=== PATIENT | male | born 1980 | race American Indian/Alaskan Native ===

== ENCOUNTER 2018-07-25 20:24 | Emergency (ER) | payer SELFPAY ==
--- NOTE | 2018-07-25 21:13 | C.PDOC ---
History Of Present Illness 37 year old male presents to the ER stating when he eats he feels like food gets stuck when he swallows for the past 3 days. Patient reports he is able to tolerate water without any difficult. Patient also reports pain to the bilateral lateral torso areas mainly when driving. He also reports having a "sex problem", however, patient is laughing and unwilling to describe the nature of the "sex problem". Denies rash, penile discharge, swelling, or pain, fever or other complaints. Time Seen by Provider: 07/25/18 20:59 Chief Complaint (Nursing): Abdominal Pain History Per: Patient History/Exam Limitations: no limitations Onset/Duration Of Symptoms: Days Current Symptoms Are (Timing): Still Present Recent travel outside of the [place]: No Past Medical History Reviewed: Historical Data, Nursing Documentation, Vital Signs Vital Signs: Last Vital Signs Temp 98.8 F 07/25/18 20:43 Pulse 72 07/25/18 20:43 Resp 18 07/25/18 20:43 BP 134/77 07/25/18 20:43 Pulse Ox 97 07/25/18 20:43 Family History: States: Unknown Family Hx - Social History Hx Alcohol Use: No Hx Substance Use: No - Immunization History Hx Tetanus Toxoid Vaccination: No Hx Influenza Vaccination: No Hx Pneumococcal Vaccination: No Review Of Systems Except As Marked, All Systems Reviewed And Found Negative. Constitutional: Negative for: Fever, Chills Gastrointestinal: Positive for: Abdominal Pain Physical Exam - Physical Exam Appears: Well, Non-toxic, No Acute Distress Skin: Normal Color, Warm Head: Atraumatic, Normacephalic Eye(s): bilateral: Normal Inspection Oral Mucosa: Moist Neck: Normal, Supple Chest: Symmetrical, No Tenderness Cardiovascular: Rhythm Regular Respiratory: Normal Breath Sounds, No Rales, No Rhonchi, No Wheezing Gastrointestinal/Abdominal: Soft, No Tenderness Back: No CVA Tenderness, No Vertebral Tenderness, No Paraspinal Tenderness Extremity: Normal ROM (x4) Neurological/Psych: Oriented x3, Normal Speech ED Course And Treatment O2 Sat by Pulse Oximetry: 97 (Room air) Pulse Ox Interpretation: Normal Disposition Counseled Patient/Family Regarding: Diagnosis, Need For Followup - Disposition Referrals: [facility] [Outside] [facility] [Outside] Disposition: HOME/ ROUTINE Disposition Time: 21:12 Condition: GOOD Instructions: Acid Reflux (Gastroesophageal Reflux Disease), Adult (DC) - Clinical Impression Clinical Impression: Abdominal colic, GERD (gastroesophageal reflux disease) - Scribe Statement The provider has reviewed the documentation as recorded by the Scribadria Jones All medical record entries made by the Edaibadria were at my direction and personally dictated by me. I have reviewed the chart and agree that the record accurately reflects my personal performance of the history, physical exam, medical decision making, and the department course for this patient. I have also personally directed, reviewed, and agree with the discharge instructions and disposition.
[2018-07-25 21:20] VITALS: BP 134/77; PULSE 72; RESP 18; TEMP 98.8; O2SAT 97
== END 2018-07-25 21:38 | disposition home or self-care (01) ==
LOC: C.ER 20:24
DX: K21.9 Gastro-esophageal reflux disease without esophagitis (principal); R10.84 Generalized abdominal pain